=== PATIENT | male | born 1985 | race Caucasian/White ===

== ENCOUNTER 2017-11-25 17:52 | Emergency (ER) | payer OTHER ==
[~2017-11-25] VITALS: Ht 190.5 cm; Wt 98.9 kg
[2017-11-25 18:06] VITALS: BP 121/75
[2017-11-25] MEDS ORDERED: KEFLEX500 M1 PO (18:25)
== END 2017-11-25 18:41 | disposition home or self-care (01) ==
LOC: ER 17:52
DX: L02.211 Cutaneous abscess of abdominal wall (principal)

== ENCOUNTER 2021-03-03 05:59 | Emergency (ER) | payer OTHER ==
[~2021-03-03] VITALS: Ht 190.5 cm; Wt 90.7 kg
[~2021-03-03 05:59] MED LIST: KEFLEX500 M1 PO
[2021-03-03 06:07] VITALS: BP 145/88
[2021-03-03] MEDS ORDERED: PERCOCET 5-3251 EACH PO (06:51)
[2021-03-03] MEDS ORDERED: DOXYCYCLINE 10100 MG PO (06:51)
== END 2021-03-03 07:52 | disposition home or self-care (01) ==
LOC: ER 05:59
DX: L03.012 Cellulitis of left finger (principal); F12.90 Cannabis use, unspecified, uncomplicated; Z79.899 Other long term (current) drug therapy